=== PATIENT | female | born 1980 | race Caucasian/White ===

== ENCOUNTER 2018-01-24 20:42 | Emergency (ER) | END 2018-01-25 01:15 | disposition home or self-care (01) ==

== ENCOUNTER 2018-11-29 12:41 | Emergency (ER) | payer MEDICAID, OTHER ==
[~2018-11-29] VITALS: Ht 157.5 cm; Wt 69.8 kg
[~2018-11-29 12:41] MED LIST: DOXY100T20 PO; IBUP-1542 PO; PREN1TAB49 PO; PRENATALS
[2018-11-29 12:50] VITALS: Ht 157.5 cm; Wt 69.8 kg
[2018-11-29] MEDS ORDERED: morphine 4 MG/ML VIAL IV STA (14:00)
[2018-11-29] MEDS ORDERED: SOD CHLORIDE 0.9% 1,000 ML IV STA (14:00)
[2018-11-29] MEDS ORDERED: ONDANSETRON 4 MG INJ IV STA (14:00)
[2018-11-29] MEDS ORDERED: KETOROLAC 30 MG INJ IV STA (16:49)
[2018-11-29] MEDS ORDERED: IBUP-1542 PO (17:30)
--- NOTE | 2018-11-29 17:40 | ERD ---
ER Documentation Chief Complaint Chief Complaint LUQ PAIN X 4 DAYS HPI 38-year-old female patient with no significant past medical history presents to the ED stating that she has some left rib pain that started about 4 days ago. Patient states that when she breathes in and out, it worsens the pain. States that when she lays on her left ribs, it worsens the pain. Denies any nausea, vomiting, diarrhea, neck stiffness, abdominal pain, fever, chills. ROS All systems reviewed and are negative except as per history of present illness. Medications Home Meds Active Scripts Ibuprofen* (Motrin*) 600 Mg Tab, 600 MG PO Q6, #30 TAB Prov:MANUEL PIKE PA-C 11/29/18 Ibuprofen* (Motrin*) 600 Mg Tab, 600 MG PO Q6, #30 TAB Prov:MEGAN AGUILA PA-C 01/25/18 Doxycycline Hyclate* (Doxycycline Hyclate*) 100 Mg Tablet.dr, 100 MG PO BID for 10 Days, TAB Prov:MEGAN AGUILA PA-C 01/25/18 Reported Medications Vits W-Ca,Fe,Fa(<1MG) () 1 Tab Tablet, 1 TAB PO DAILY 09/20/12 [Prenatals] No Conflict Check 03/16/12 Allergies Allergies: Coded Allergies: No Known Allergy (Unverified , 11/04/13) PMhx/Soc Medical and Surgical Hx: pt denies Medical Hx History of Surgery: Yes (cholecystectomy) Anesthesia Reaction: No Hx Neurological Disorder: No Hx Respiratory Disorders: No Hx Cardiac Disorders: No Hx Psychiatric Problems: No Hx Miscellaneous Medical Probl: No Hx Alcohol Use: Yes (HX) Hx Substance Use: No Hx Tobacco Use: No Smoking Status: Never smoker FmHx Family History: No diabetes, No coronary disease Physical Exam Vitals Vital Signs Date Temp Pulse Resp B/P (MAP) Pulse Ox O2 O2 Flow FiO2 Time Delivery Rate 11/29/18 98.3 88 18 133/84 97 12:50 (100) Physical Exam Const: [id number], well-nourished. In no acute distress. Head: Atraumatic, normocephalic Eyes: Normal Conjunctiva without injection. No purulent discharge. PERRL. EOMI ENT: Normal external ear. Ear canal without erythema. Tympanic membrane pearly lamas without effusion or bulging. Nasal canal clear with normal turbinates. Moist oropharynx without tonsillar exudates. Non-erythematous pharynx. Uvula midline. No drooling. No trismus. Neck: Full range of motion. No meningismus. No cervical lymphadenopathy. Resp: Clear to auscultation bilaterally. No wheezing, rhonchi, rales, or crackles. No accessory muscle use. No retractions. Cardio: Regular rate and rhythm. No murmurs, rubs or gallops. Abd: Soft, non tender, non distended. Normal bowel sounds. No palpable masses. No rebound tenderness. No guarding. Skin: No petechiae or rashes Back: No midline tenderness. No CVA tenderness. Ext: No cyanosis, or edema. Neur: Awake and alert. Psych: Normal Mood and Affect Results 24 hrs Laboratory Tests Test 11/29/18 14:41 11/29/18 14:49 White Blood Count 9.7 10^3/ul Red Blood Count 4.73 10^6/ul Hemoglobin 14.0 g/dl Hematocrit 41.4 % Mean Corpuscular Volume 87.5 fl Mean Corpuscular Hemoglobin 29.6 pg Mean Corpuscular Hemoglobin Concent 33.8 g/dl Red Cell Distribution Width 12.1 % Platelet Count 339 10^3/UL Mean Platelet Volume 9.6 fl Immature Granulocytes % 0.200 % Neutrophils % 60.2 % Lymphocytes % 31.7 % Monocytes % 6.3 % Eosinophils % 1.1 % Basophils % 0.5 % Nucleated Red Blood Cells % 0.0 /100WBC Immature Granulocytes # 0.020 10^3/ul Neutrophils # 5.8 10^3/ul Lymphocytes # 3.1 10^3/ul Monocytes # 0.6 10^3/ul Eosinophils # 0.1 10^3/ul Basophils # 0.1 10^3/ul Nucleated Red Blood Cells # 0.0 10^3/ul Urine Color YELLOW Urine Clarity SLIGHTLY CLOUDY Urine pH 5.0 Urine Specific [place] 1.026 Urine Ketones TRACE mg/dL Urine Nitrite NEGATIVE mg/dL Urine Bilirubin NEGATIVE mg/dL Urine Urobilinogen NEGATIVE mg/dL Urine Leukocyte Esterase TRACE Esdras/ul Urine Microscopic RBC 2 /HPF Urine Microscopic WBC 3 /HPF Urine Squamous Epithelial Cells FEW /HPF Urine Mucus MANY /HPF Urine Hemoglobin 1+ mg/dL Urine Glucose NEGATIVE mg/dL Urine Total Protein NEGATIVE mg/dl Sodium Level 142 mmol/L Potassium Level 4.2 mmol/L Chloride Level 104 mmol/L Carbon Dioxide Level 26 mmol/L Anion Gap 12 Blood Urea Nitrogen 11 mg/dl Creatinine 0.55 mg/dl Est Glomerular Filtrat Rate mL/min > 60 mL/min Glucose Level 93 mg/dl Calcium Level 9.5 mg/dl Total Bilirubin 0.5 mg/dl Direct Bilirubin 0.00 mg/dl Indirect Bilirubin 0.5 mg/dl Aspartate Amino Transf (AST/SGOT) 22 IU/L Alanine Aminotransferase (ALT/SGPT) 11 IU/L Alkaline Phosphatase 55 IU/L Troponin I < 0.012 ng/ml Total Protein 8.7 g/dl Albumin 4.4 g/dl Globulin 4.30 g/dl Albumin/Globulin Ratio 1.02 Lipase 78 U/L POC Beta HCG, Qualitative NEGATIVE Current Medications Medications Dose Sig/Ellen Start Time Status Last (Trade) Ordered Route PRN Stop Time Admin Dose Reason Admin Sodium 1,000 ml @ Q1H STAT 11/29/18 DC 11/29/18 Chloride 1,000 mls/hr IV 14:00 11/29/18 15:00 14:59 Morphine 4 mg ONCE STAT 11/29/18 DC 11/29/18 Sulfate IV 14:00 11/29/18 15:00 (morphine) 14:04 Ondansetron 4 mg ONCE STAT 11/29/18 DC 11/29/18 HCl (Zofran IV 14:00 11/29/18 15:00 Inj) 14:04 Ketorolac 30 mg ONCE STAT 11/29/18 DC 11/29/18 Tromethamine IV 16:49 11/29/18 16:54 (Toradol) 16:50 Procedures/MDM 38-year-old female patient with no significant past medical history presents the ED complaining of left rib pain that started about 4 days ago. Patient is afebrile and nontoxic-appearing. IMPRESSION: No acute disease. Patient was further worked up with CBC, CMP, lipase, UA, chest x-ray, urine . Patient's pain and symptoms have improved after treatment with 4 mg IV morphine, 4 mg IV Zofran. CBC: No leukocytosis. No e/o of systemic infection. No e/o anemia. CMP: No e/o severe acidosis, alkalosis, renal failure, diabetic ketoacidosis, liver disease Lipase within normal limits. Urine: No leukocyte esterase, no nitrites, no hematuria. Urine : Negative EKG reviewed and interpreted by Dr. Garzon Rate/Rhythm: [65 bpm, Normal Sinus Rhythm] No ectopy, no ST elevations, normal axis. QRS, ST, T-waves: [No changes consistent w/ acute ischemia] Impression: [No evidence of ischemia or arrhythmia] Patient likely has costochondritis since pain is reproducible. Low suspicion for acute myocardial infarction, pneumothorax, pneumonia, cardiac tamponade, Vkiyj-Njjyigefo-Kbixq Syndrome, Brugada Syndrome, pulmonary embolism, AAA, aortic dissection, thoracic aortic dissection, endocarditis, myocarditis, pe ricarditis, cocaine-related ischemia, Boerhaave's syndrome, cardiac dysrhythmias,meningitis, intracranial bleed, seizure, stroke, TIA or other emergent conditions. Low suspicion for ectopic , ovarian torsion, gastritis, GERD, peptic ulcer disease, cholecystitis, choledocholithiasis, cholangitis, pancreatitis, appendicitis, bowel obstruction, ileus, volvulus, nephrolithiasis, pyelonephritis, hepatitis, perforated viscus, diverticulitis, strangulated/incarcerated hernia, DKA, acute abdomen, mesenteric ischemia or other emergent conditions. Discussed with Dr. Garzon, my supervising physician who agreed with the management and discharge plan. Diagnosis: Rib pain on the left side Discharge medications: Ibuprofen Follow up with primary care physician in 1-2 days. Instructed patient to return to the ED sooner for any worsening symptoms. Patient's questions were answered. Patient is hemodynamically stable. Patient understood and agreed with discharge plan. Patient discharged stable. Disclaimer: Inadvertent spelling and grammatical errors are likely due to EHR/dictation software use and do not reflect on the overall quality of patient care. Also, please note that the electronic time recorded on this note does not necessarily reflect the actual time of the patient encounter. Departure Diagnosis: Primary Impression: Rib pain on left side Condition: Stable Patient Instructions: Costochondritis, Pleurisy Referrals: COMMUNITY CLINICS YOU HAVE RECEIVED A MEDICAL SCREENING EXAM AND THE RESULTS INDICATE THAT YOU DO NOT HAVE A CONDITION THAT REQUIRES URGENT TREATMENT IN THE EMERGENCY DEPARTMENT. FURTHER EVALUATION AND TREATMENT OF YOUR CONDITION CAN WAIT UNTIL YOU ARE SEEN IN YOUR DOCTORS OFFICE WITHIN THE NEXT 1-2 DAYS. IT IS YOUR RESPONSIBILITY TO MAKE AN APPOINTMENT FOR FOLOW-UP CARE. IF YOU HAVE A PRIMARY DOCTOR --you should call your primary doctor and schedule an appointment IF YOU DO NOT HAVE A PRIMARY DOCTOR YOU CAN CALL OUR PHYSICIAN REFERRAL HOTLINE AT IF YOU CAN NOT AFFORD TO SEE A PHYSICIAN YOU CAN CHOSE FROM THE FOLLOWING [facility] [address] [facility] [address] [facility] [address] [facility] [address] [facility] [address] [facility]. [facility] [address] [facility]. [facility] YOU HAVE RECEIVED A MEDICAL SCREENING EXAM AND THE RESULTS INDICATE THAT YOU DO NOT HAVE A CONDITION THAT REQUIRES URGENT TREATMENT IN THE EMERGENCY DEPARTMENT. FURTHER EVALUATION AND TREATMENT OF YOUR CONDITION CAN WAIT UNTIL YOU ARE SEEN IN YOUR DOCTORS OFFICE WITHIN THE NEXT 1-2 DAYS. IT IS YOUR RESPONSIBILITY TO MAKE AN APPOINTMENT FOR FOLOW-UP CARE. IF YOU HAVE A PRIMARY DOCTOR --you should call your primary doctor and schedule and appointment IF YOU DO NOT HAVE A PRIMARY DOCTOR YOU CAN CALL OUR PHYSICIAN REFERRAL HOTLINE AT . IF YOU CAN NOT AFFORD TO SEE A PHYSICIAN YOU CAN CHOSE FROM THE FOLLOWING [facility]: [facility] [address] [place] [address] [facility] [address] [place] [address] [facility] [address] [place] [address] [facility] URGENT CARE/SPECIALTIES Additional Instructions: Call your primary care doctor TOMORROW for an appointment during the next 2-3 days.See the doctor sooner or return here if your condition worsens before your appointment time. MANUEL PIKE PA-C November 29, 2018 17:40
[2018-11-29 17:45] VITALS: BP 106/63; PULSE 64; RESP 18
== END 2018-11-29 17:46 | disposition home or self-care (01) ==
LOC: FTE 12:41
DX: R07.81 Pleurodynia (principal)
CPT/HCPCS: 36415; 71045; 80053; 81001; 81025; 83690; 84484; 85025; 93005; 96361; 96374; 96375; J1885; J2270; J2405; J7030; Z7502

== ENCOUNTER 2018-12-09 15:39 | Emergency (ER) | payer MEDICAID ==
[~2018-12-09] VITALS: Ht 167.6 cm; Wt 65.0 kg
[2018-12-09 15:45] VITALS: Ht 167.6 cm; Wt 65.0 kg
--- NOTE | 2018-12-09 17:37 | ERD ---
ER Documentation Chief Complaint Chief Complaint Complains of abdominal pain x 3 days HPI 38-year-old female, presents the emergency department, complaining of persistent left upper quadrant abdominal pain that started approximately 1 week ago but is been getting worse during the last 3 days. The pain is sharp, constant, 7/10. The patient reports nausea but no vomiting, no fever or chills, no diarrhea or constipation, no urinary symptoms. ROS All systems reviewed and are negative except as per history of present illness. Medications Home Meds Active Scripts Acetaminophen* (Tylenol*) 325 Mg Tablet, 2 TAB PO Q8 PRN for PAIN AND OR ELEVATED TEMP, #20 TAB Prov:TATY KNUTSON MD 12/09/18 Polyethylene Glycol* (Miralax*) 17 Gm Powd.pack, 17 GM PO BID, #60 PACKET Prov:TATY KNUTSON MD 12/09/18 Ranitidine Hcl* (Zantac*) 150 Mg Tablet, 150 MG PO BID PRN for EPIGASTRIC PAIN, #30 TAB Prov:TATY KNUTSON MD 12/09/18 Ibuprofen* (Motrin*) 600 Mg Tab, 600 MG PO Q6, #30 TAB Prov:MANUEL PIKE PA-C 11/29/18 Ibuprofen* (Motrin*) 600 Mg Tab, 600 MG PO Q6, #30 TAB Prov:MEGAN AGUILA PA-C 01/25/18 Doxycycline Hyclate* (Doxycycline Hyclate*) 100 Mg Tablet.dr, 100 MG PO BID for 10 Days, TAB Prov:MEGAN AGUILA PA-C 01/25/18 Reported Medications Vits W-Ca,Fe,Fa(<1MG) () 1 Tab Tablet, 1 TAB PO DAILY 09/20/12 [Prenatals] No Conflict Check 03/16/12 Allergies Allergies: Coded Allergies: No Known Allergy (Unverified , 11/04/13) PMhx/Soc History of Surgery: Yes (cholecystectomy) Anesthesia Reaction: No Hx Neurological Disorder: No Hx Respiratory Disorders: No Hx Cardiac Disorders: No Hx Psychiatric Problems: No Hx Miscellaneous Medical Probl: No Hx Alcohol Use: Yes (HX) Hx Substance Use: No Hx Tobacco Use: No FmHx Family History: No diabetes, No coronary disease Physical Exam Vitals Vital Signs Date Temp Pulse Resp B/P (MAP) Pulse Ox O2 O2 Flow FiO2 Time Delivery Rate 12/09/18 98.0 80 17 102/57 98 Room Air 20:01 (72) 12/09/18 99.0 75 20 162/80 95 15:45 (107) Physical Exam Const: No acute distress Head: Atraumatic Eyes: Normal Conjunctiva ENT: Normal External Ears, Nose and Mouth. Neck: Full range of motion. No meningismus. Resp: Clear to auscultation bilaterally Cardio: Regular rate and rhythm, no murmurs Abd: Soft, tender to palpation in LUQ area, no peritoneal signs, non distended. Normal bowel sounds Skin: No petechiae or rashes Back: No midline or flank tenderness Ext: No cyanosis, or edema Neur: Awake and alert Psych: Normal Mood and Affect Result Diagram: 12/09/18182212/09/181822 Results 24 hrs Laboratory Tests Test 12/09/18 18:23 12/09/18 18:33 12/09/18 18:34 White Blood Count 12.4 10^3/ul Red Blood Count 4.72 10^6/ul Hemoglobin 14.0 g/dl Hematocrit 40.9 % Mean Corpuscular Volume 86.7 fl Mean Corpuscular Hemoglobin 29.7 pg Mean Corpuscular 34.2 g/dl Hemoglobin Concent Red Cell Distribution Width 12.1 % Platelet Count 355 10^3/UL Mean Platelet Volume 9.6 fl Immature Granulocytes % 0.300 % Neutrophils % 62.2 % Lymphocytes % 30.2 % Monocytes % 5.7 % Eosinophils % 1.2 % Basophils % 0.4 % Nucleated Red Blood Cells % 0.0 /100WBC Immature Granulocytes # 0.040 10^3/ul Neutrophils # 7.7 10^3/ul Lymphocytes # 3.7 10^3/ul Monocytes # 0.7 10^3/ul Eosinophils # 0.2 10^3/ul Basophils # 0.1 10^3/ul Nucleated Red Blood Cells # 0.0 10^3/ul Sodium Level 142 mmol/L Potassium Level 4.2 mmol/L Chloride Level 105 mmol/L Carbon Dioxide Level 24 mmol/L Anion Gap 13 Blood Urea Nitrogen 10 mg/dl Creatinine 0.53 mg/dl Est Glomerular Filtrat Rate mL/min > 60 mL/min Glucose Level 86 mg/dl Calcium Level 9.5 mg/dl Total Bilirubin 0.4 mg/dl Direct Bilirubin 0.00 mg/dl Indirect Bilirubin 0.4 mg/dl Aspartate Amino Transf (AST/SGOT) 22 IU/L Alanine 14 IU/L Aminotransferase (ALT/SGPT) Alkaline Phosphatase 60 IU/L Total Protein 8.9 g/dl Albumin 4.5 g/dl Globulin 4.40 g/dl Albumin/Globulin Ratio 1.02 Lipase 72 U/L Bedside Urine pH (LAB) 5.5 Bedside Urine Protein (LAB) Negative Bedside Urine Glucose (UA) Negative Bedside Urine Ketones (LAB) Negative Bedside Urine Blood Trace-lysed Bedside Urine Nitrite (LAB) Negative Bedside Urine Leukocyte Esterase Negative (L POC Beta HCG, Qualitative NEGATIVE Current Medications Medications Dose Sig/Ellen Start Time Status Last (Trade) Ordered Route PRN Stop Time Admin Dose Reason Admin Sodium 500 ml @ Q1H STAT 12/09/18 DC 12/09/18 Chloride 500 mls/hr IV 17:42 18:38 12/09/18 18:41 Morphine 1 mg ONCE STAT 12/09/18 DC 12/09/18 Sulfate IV 17:42 18:37 (morphine) 12/09/18 17:47 Ondansetron 4 mg ONCE STAT 12/09/18 DC 12/09/18 HCl (Zofran IV 17:42 18:36 Inj) 12/09/18 17:47 Famotidine 20 mg ONCE STAT 12/09/18 DC 12/09/18 (Pepcid Iv) IV 17:42 18:36 12/09/18 17:47 EKG read by me: Rate/Rhythm: Regular rate and rhythm at a rate of 81 Intervals: Normal No acute ST changes. No T wave inversion Impression: No evidence of acute ischemia or arrhythmia Patient: KRISTEN CALERO : 1980 Age: 38 Sex: F MR #: [id number] DOS: 12/09/181741 Ordering MD: TATY KNUTSON MD Location: [facility] Room/Bed: PROCEDURE: CT Abdomen and pelvis without contrast. CLINICAL INDICATION: Abdominal pain. TECHNIQUE: CT scan of the abdomen and pelvis was performed on a multi- detector high-resolution CT scanner. Contiguous axial images were obtained from the lung bases to the ischial tuberosities without intravenous contrast. Coronal and sagittal reformatted images were also obtained. Images were reviewed on the PACS workstation. DICOM images are available. One or more of the following dose reduction techniques were used: - Automated exposure control. - Adjustment of the mA and/or kV according to patient size. - Use of iterative reconstruction technique. Exam CTD/vol = 10.00 mGy. Total exam DLP = 564.45 mGy-cm. COMPARISON: 10/24/2013. FINDINGS: Evaluation of the lung bases demonstrates no pleural or parenchymal disease. Abdomen: The liver is normal in size. There is no focal mass or dilatation of the biliary tree. The patient is status post cholecystectomy. The spleen, pancreas and bilateral adrenal glands are within normal limits. Bilateral kidneys are normal in size with no contour deforming mass identified. There is no radiopaque renal or ureteral calculus identified. There is no hydronephrosis or hydroureter. There is no retroperitoneal adenopathy. The abdominal aorta is of normal caliber. There is moderate retained stool within the colon. There is no bowel obstruction or free air. A normal appendix is identified. There is no diverticulosis or diverticulitis. There is no ascites. Pelvis: The bladder is unremarkable. The uterus and adnexa are within normal limits. There is no significant pelvic adenopathy or free fluid. Evaluation of the osseous structures demonstrates no suspicious lytic or blastic lesion. IMPRESSION: No acute abnormality identified within the abdomen and pelvis. Moderate retained stool within the colon. Status post cholecystectomy. Procedures/MDM Vital signs stable. Differential diagnosis include but not limited to: UTI, colitis, gastroenteritis, kidney stones, irritable bowel syndrome, inflammatory bowel syndrome, malabsorption syndrome, cholelithiasis, food intolerance, medication side effect, pancreatitis, diverticulitis, bowel obstruction. Physical examination and clinical presentation consistent most likely with constipation plus GERD, low suspicion for acute abdomen. During the ED course the patient remained stable, no new complaints. The patient received treatment with IV fluids and IV medications presenting overall improvement of the symptoms. Results and clinical impression discussed with the patient who agrees with management. The patient is stable to be treated outpatient and will be discharged home; some side effects of prescribed medications (headache, rash, nausea, vomiting, diarrhea, drowsiness, habituation, bleeding, hypertension, interactions with other medications) were reviewed. Instructions explained and given directly by me to the patient with acknowledgment and demonstrated understanding. Disclaimer: Inadvertent spelling and grammatical errors are likely due to EHR/dictation software use and do not reflect on the overall quality of patient care. Also, please note that the electronic time recorded on this note does not necessarily reflect the actual time of the patient encounter. Departure Diagnosis: Primary Impression: Abdominal pain Additional Impression: Constipation Condition: Stable Patient Instructions: Constipation (Adult) Additional Instructions: Thank you very much for allowing us to participate in your care. Your health and safety is our top priority at [facility]. The evaluation in the emergency department has been done to rule out an acute emergency, chronic conditions like malignancy or other diseases have not been evaluated; therefore, you need to follow up with a primary care provider in the next 48h. If symptoms persist, worsen or new symptoms develop, then patient should return to the ED immediately. Call your primary care doctor TOMORROW for an appointment during the next 2-4 days and bring all the information provided. Have prescriptions filled and follow precisely the directions on the label. If the symptoms get worse and your provider is unavailable, return to the Emergency Department immediately. TATY KNUTSON MD December 09, 2018 17:37
[2018-12-09] MEDS ORDERED: morphine 2 MG INJ IV STA (17:42)
[2018-12-09] MEDS ORDERED: SOD CHLORIDE 0.9% 500 ML IV STA (17:42)
[2018-12-09] MEDS ORDERED: FAMOTIDINE 20 MG INJ IV STA (17:42)
[2018-12-09] MEDS ORDERED: ONDANSETRON 4 MG INJ IV STA (17:42)
[2018-12-09] MEDS ORDERED: RANI150T35 PO (19:38)
[2018-12-09] MEDS ORDERED: POLY17PO6 PO (19:38)
[2018-12-09] MEDS ORDERED: ACET325T33 PO (19:38)
[2018-12-09 20:01] VITALS: BP 102/57; PULSE 80; RESP 17
== END 2018-12-09 20:01 | disposition home or self-care (01) ==
LOC: FTE 15:39
DX: R10.12 Left upper quadrant pain (principal); K59.00 Constipation, unspecified
CPT/HCPCS: 36415; 74176; 80053; 81003; 81025; 83690; 85025; 93005; 96374; 96375; J2270; J2405; J7040; Z7502; Z7610